=== PATIENT | male | born 1960 | race Caucasian/White ===

== ENCOUNTER → 2017-01-27 | Day surgery (SDC) | payer OTHER | END | disposition home or self-care (01) | LOC: FAS 11:07 | DX: I87.2 Venous insufficiency (chronic) (peripheral) (principal); I11.0 Hypertensive heart disease with heart failure; I50.9 Heart failure, unspecified; J44.9 Chronic obstructive pulmonary disease, unspecified; I25.10 Atherosclerotic heart disease of native coronary artery without angina pectoris; E11.9 Type 2 diabetes mellitus without complications; F17.210 Nicotine dependence, cigarettes, uncomplicated; K21.9 Gastro-esophageal reflux disease without esophagitis; I25.2 Old myocardial infarction; E78.00 Pure hypercholesterolemia, unspecified; Z79.82 Long term (current) use of aspirin; Z90.49 Acquired absence of other specified parts of digestive tract; Z79.899 Other long term (current) drug therapy; Z98.890 Other specified postprocedural states | CPT/HCPCS: 71010; C1788; J1644; J2704; J3010 ==

== ENCOUNTER 2017-01-29 14:27 | Emergency (ER) | payer OTHER ==
[2017-01-29 15:16] LABS: BASOPHIL 0.1 % (0-2); EOSINOPHIL 0.2 % (0-5); HCT 32.2 % (42.0-52.0); HGB 11.3 g/dl (13.2-18.0); LYMPHOCYTE 4.2 % (15-48); MCH 29.8 pg (25.0-31.0); MCHC 35.1 g/dL (32.0-36.0); MONOCYTE 7.4 % (0-12); MPV 8.5 fL (6.0-9.5); NEUTROPHIL 88.1 % (41-80); PLT 221 K/uL (150-400); RBC 3.79 M/uL (4.70-6.00); RDW 13.4 % (11.5-14.0); WBC 18.5 K/uL (4.0-10.5)
[2017-01-29 15:40] LABS: ALBUMIN 3.2 g/dL (3.5-5.0); BILIRUBIN - TOTAL 0.8 mg/dL (0.1-1.0); CREATININE 0.8 mg/dL (0.7-1.2); GLOBULIN (CALCULATION) 4.3 g/dL (2.2-4.2); POTASSIUM 3.6 mmol/L (3.5-5.1); TOTAL PROTEIN 7.5 g/dL (6.4-8.3)
[2017-01-29 16:49] LABS: INR 1.18 (0.9-1.2); PROTHROMBIN TIME 14.6 SECONDS (11.7-14.0); PTT 39.2 SECONDS (23.2-31.4)
[2017-01-29 16:58] LABS: LACTIC ACID 1.2 mmol/L (0.5-2.2)
== END 2017-01-29 17:44 | disposition home or self-care (01) ==
LOC: FER 14:27
PROVIDERS: Emergency Medicine
DX: E87.1 Hypo-osmolality and hyponatremia (principal); R50.9 Fever, unspecified; R11.2 Nausea with vomiting, unspecified; R05 Cough; R82.90 Unspecified abnormal findings in urine; I11.0 Hypertensive heart disease with heart failure; I51.9 Heart disease, unspecified; I25.2 Old myocardial infarction; C34.90 Malignant neoplasm of unspecified part of unspecified bronchus or lung; E11.9 Type 2 diabetes mellitus without complications; J44.9 Chronic obstructive pulmonary disease, unspecified; E78.5 Hyperlipidemia, unspecified; F17.210 Nicotine dependence, cigarettes, uncomplicated; Z79.51 Long term (current) use of inhaled steroids; Z95.5 Presence of coronary angioplasty implant and graft
CPT/HCPCS: 36415; 71020; 80053; 83605; 84484; 85025; 85610; 85730; 87040; 87077; 87205; 93005; 94640; J2930

== ENCOUNTER 2017-02-06 20:04 | Emergency (ER) | payer OTHER ==
[2017-02-06 21:16] LABS: BASOPHIL 0.1 % (0-2); HCT 30.6 % (42.0-52.0); HGB 10.8 g/dl (13.2-18.0); LYMPHOCYTE 2.9 % (15-48); MCH 29.5 pg (25.0-31.0); MCHC 35.3 g/dL (32.0-36.0); MCV 83.6 fL (78.0-100.0); MONOCYTE 4.1 % (0-12); MPV 9.1 fL (6.0-9.5); NEUTROPHIL 91.9 % (41-80); PLT 210 K/uL (150-400); RBC 3.66 M/uL (4.70-6.00); WBC 19.8 K/uL (4.0-10.5)
[2017-02-06 21:20] LABS: BILIRUBIN NEGATIVE (NEGATIVE); BLOOD TRACE-INTACT Ery/uL (NEGATIVE); CLARITY CLEAR (CLEAR); COLOR YELLOW (YELLOW); GLUCOSE (U) NORMAL (NORMAL); KETONE (U) NEGATIVE (NEGATIVE); LEUKOCYTES NEGATIVE Leu/uL (NEGATIVE); NITRITE NEGATIVE (NEGATIVE); PROTEIN NEGATIVE (NEGATIVE); SPECIFIC GRAVITY <=1.005 (1.001-1.030)
[2017-02-06 21:27] LABS: BACTERIA TRACE
[2017-02-06 21:29] LABS: LACTIC ACID 1.4 mmol/L (0.5-2.2)
[2017-02-06 21:32] LABS: ALBUMIN 3.1 g/dL (3.5-5.0); CREATININE 0.8 mg/dL (0.7-1.2); GLOBULIN (CALCULATION) 3.4 g/dL (2.2-4.2); POTASSIUM 3.6 mmol/L (3.5-5.1); TOTAL PROTEIN 6.5 g/dL (6.4-8.3)
== END 2017-02-07 02:40 | disposition home or self-care (01) ==
LOC: FER 20:04
PROVIDERS: Emergency Medicine Emergency Medical Services
DX: E87.1 Hypo-osmolality and hyponatremia (principal); J18.9 Pneumonia, unspecified organism; I10 Essential (primary) hypertension; J44.9 Chronic obstructive pulmonary disease, unspecified; E86.9 Volume depletion, unspecified; F17.210 Nicotine dependence, cigarettes, uncomplicated; Z79.899 Other long term (current) drug therapy; Z85.118 Personal history of other malignant neoplasm of bronchus and lung; Z95.5 Presence of coronary angioplasty implant and graft
CPT/HCPCS: 36415; 71020; 71275; 80053; 81001; 83605; 84484; 85025; 87040; 87077; 87184; 93005; J0456; J1100

== ENCOUNTER 2017-02-09 19:41 | Emergency (ER) | payer OTHER ==
[2017-02-09 20:13] LABS: BASOPHIL 0.1 % (0-2); EOSINOPHIL 0.1 % (0-5); HCT 35.1 % (42.0-52.0); HGB 12.5 g/dl (13.2-18.0); LYMPHOCYTE 11.6 % (15-48); MCH 29.3 pg (25.0-31.0); MCHC 35.6 g/dL (32.0-36.0); MCV 82.4 fL (78.0-100.0); MONOCYTE 11.1 % (0-12); MPV 8.9 fL (6.0-9.5); NEUTROPHIL 77.1 % (41-80); PLT 359 K/uL (150-400); RBC 4.26 M/uL (4.70-6.00); RDW 14.3 % (11.5-14.0)
[2017-02-09 20:16] LABS: INR 1.16 (0.9-1.2); PROTHROMBIN TIME 14.4 SECONDS (11.7-14.0); PTT 31.9 SECONDS (23.2-31.4)
[2017-02-09 20:17] LABS: D-DIMER 0.83 ug/mLFEU (0.00-0.41); WBC 22.9 K/uL (4.0-10.5)
[2017-02-09 20:21] LABS: TROPONIN T < 0.010 ng/mL
[2017-02-09 20:23] LABS: LACTIC ACID 5.2 mmol/L (0.5-2.2); PRO-BNP 9378 pg/mL (0-125)
[2017-02-09 20:24] LABS: ALBUMIN 3.3 g/dL (3.5-5.0); BILIRUBIN - TOTAL 0.7 mg/dL (0.1-1.0); CREATININE 0.7 mg/dL (0.7-1.2); GLOBULIN (CALCULATION) 4.1 g/dL (2.2-4.2); POTASSIUM 3.7 mmol/L (3.5-5.1); TOTAL PROTEIN 7.4 g/dL (6.4-8.3)
[2017-02-09 23:45] LABS: BILIRUBIN NEGATIVE (NEGATIVE); BLOOD NEGATIVE Ery/uL (NEGATIVE); CLARITY CLEAR (CLEAR); COLOR YELLOW (YELLOW); GLUCOSE (U) NORMAL (NORMAL); KETONE (U) NEGATIVE (NEGATIVE); LEUKOCYTES NEGATIVE Leu/uL (NEGATIVE); NITRITE NEGATIVE (NEGATIVE); PROTEIN NEGATIVE (NEGATIVE); SPECIFIC GRAVITY <=1.005 (1.001-1.030); UROBILINOGEN 0.2 mg/dL (0.2-1.0); pH 6.5 (5.0-9.0)
== END 2017-02-10 01:33 | disposition other institution (70) ==
LOC: FER 19:41
PROVIDERS: Emergency Medicine
DX: R09.02 Hypoxemia (principal); C34.90 Malignant neoplasm of unspecified part of unspecified bronchus or lung; I11.0 Hypertensive heart disease with heart failure; I50.9 Heart failure, unspecified; I25.10 Atherosclerotic heart disease of native coronary artery without angina pectoris; E11.9 Type 2 diabetes mellitus without complications; J44.9 Chronic obstructive pulmonary disease, unspecified; E78.5 Hyperlipidemia, unspecified; R82.90 Unspecified abnormal findings in urine; F17.210 Nicotine dependence, cigarettes, uncomplicated; Z79.51 Long term (current) use of inhaled steroids; Z79.82 Long term (current) use of aspirin; Z79.84 Long term (current) use of oral hypoglycemic drugs; Z79.899 Other long term (current) drug therapy; Z87.01 Personal history of pneumonia (recurrent); Z95.5 Presence of coronary angioplasty implant and graft; Z99.81 Dependence on supplemental oxygen
CPT/HCPCS: 36415; 36600; 71275; 80053; 81003; 82803; 83605; 83880; 84484; 85025; 85379; 85610; 85730; 86403; 87040; 87077; 87088; 93005; 94640; 94660; 94760; J1956; J2930; Q9967